=== PATIENT | female | born 1955 | race Caucasian/White ===

== ENCOUNTER 2019-10-17 08:00 | Outpatient (RCR) | payer MEDICARE, SELFPAY ==
--- NOTE | 2019-09-05 16:01 | OTOPEVAL ---
OCCUPATIONAL THERAPY EVALUATION 09/05/2019 Thank you for referring this patient to [facility]. The patient is going out of town, returning week of 09/23. Plan to see the patient 2x/week for 4 weeks beginning week of 09/23. Please review, sign, date and return this plan of care REINALDO. I agree with and certify that the following plan of care is medically necessary. Referring Physician Date Attending Provider: Javier Christopher MD *OT Outpatient Evaluation Start: 09/05/19 14:40 Freq: Status: Active Protocol: Document 09/05/19 14:40 ZAC (Rec: 09/05/19 16:01 ZAC [id number]) Therapy Assessment Status Assessment Status Assessment Status Evaluation Outpatient Past Medical History Neurological History Hx Neurological Disorders No Significant History Cardiovascular History Hx Cardiac Disorders No Significant History Respiratory History Hx Respiratory Disorders No Significant History Gastrointestinal History Hx Gastrointestinal Disorders No Significant History Genitourinary History Hx Genitourinary Disorders No Significant History Musculoskeletal History Hx Other Musculoskeletal Disorders Yes: LT DISTAL RADIUS FX Hematological History Hx Hematological Disorders No Significant History Endocrine History Hx Endocrine Disorders No Significant History HEENT History Hx HEENT Disorders No Significant History Integumentary History Hx Skin Disorders No Significant History Reproductive History Hx Other Reproductive Disorders Yes: LT BREAST CYST REMOVED- BENIGN. DECEMBER 2018 LOYD OOPHORECTOMY Psychosocial History Hx Psychiatric Disorders No Significant History Pain History Has Past Pain Affected Your Daily Life Yes: LT WRIST Anesthesia History Hx Post-Op Nausea/Vomiting Yes: Evaluation Information Problem Diagnosis (L) distal radius fracture Onset 07/30/19 Cause fall on outstretched hand Additional Evaluation Detail ORIF 08/05/19 wrist immobilizer discharged Subjective Information Patient reports she hasn't Query Text:As Reported By Patient/ been wearing a brace since Family Monday09/03/19. She hasn't been lifting more than a tissue box. Difficulties with opening door knobs, lifting water jug, doing her hair, and buttoning. Prior Level of Function Activity Level (Last 3 Months) Occupation Retired Hand Dominance Right Activity of Daily Living Ability Independent Pain Assessment Timing of Pain Assessment Timing of Pain Assessment Assessme
--- NOTE | 2019-10-17 08:47 | OTOPEVAL ---
OCCUPATIONAL THERAPY DISCHARGE 10/17/2019 Thank you for referring this patient to [facility] and including me in the care of this patient. Lacey has achieved functional ROM and strength of the left wrist. She is independent with all instructed materials at this time. Plan to D/C today. Please review, sign, date and return this D/C Summary REINALDO. I agree with and certify that the following plan of care is medically necessary. Referring Physician Date Attending Provider: Javier Christopher MD *OT Outpatient Re-Evaluation Evaluation Information Diagnosis (L) distal radius fracture s/p ORIF 08/05/19 Onset 07/30/19 Cause fall on outstretched hand Additional Evaluation Detail Lacey has been participating in outpatient OT since 09/05/2019 following DRF ORIF. OT has been focusing on ROM, strengthening, proprioception, functional coordination activities, and HEP education and progression. She has been extremely compliant with all materials. Subjective Information Patient reports no functional Query Text:As Reported By Patient/ limitations at this time. She Family reports continuing to feel end -range stiffness , however she understands that with time and continued use and strengthening this will subside. She is pleased with her progress and ready for discharge. Pain Assessment Timing of Pain Assessment Timing of Pain Assessment Re-assessment Pain Scale Pain Scale Used Numeric (1 - 10) Self Report Pain Assessment Left Wrist(s) Reported Pain Level 0 Pain Score Pain Score 0: Self Report Additional Pain Score Comments No pain at rest or with light use. Slight increase in discomfort with PROM and weight bearing. Upper Extremity Range of Motion Scapular/ Shoulder Range of Motion Left Reason Not Measured WNL/Left Elbow/Forearm Range of Motion Left Forearm Supination - Active 85 Forearm Pronation - Active 85 Elbow/Forearm Range of Motion Comments Supination improved from 45*. Pronation improved from 60*. Elbow flexion/extension are WNL. Wrist Range of Motion Left Wrist Flexion - Active 55 Wrist Flexion - Passive 55 Wrist Extension - Active 60 Wrist Extension - Pa
== END 2019-10-17 09:33 | disposition home or self-care (01) ==
LOC: ANHOT 08:00
PROVIDERS: PCP Orthopaedic Surgery; Visit Provider Orthopaedic Surgery
DX: Z47.89 Encounter for other orthopedic aftercare (principal)
CPT/HCPCS: 97018; 97110; 97140; 97165

== ENCOUNTER 2023-08-28 12:32 | Emergency (ER) | payer MEDICARE, SELFPAY ==
--- NOTE | ~2023-08-28 | XR_ITS ---
EXAMINATION: XR knee RT min 4V DATE: 08/28/2023 13:06 INDICATION: Right knee pain. Fall. TECHNIQUE: 4 views of right knee were obtained. COMPARISON: None. FINDINGS: There is a comminuted fracture of patella with incongruence of the articular surface. There is a sclerotic lesion in distal femur, which may be an enchondroma or osteonecrosis. The joint space s are normal. There is a small knee joint effusion. IMPRESSION: 1. Comminuted fracture of patella. 2. Small knee joint effusion. Reviewed, dictated and finalized at location A. ER MAKER
[2023-08-28 12:35] VITALS: BP 132/69; PULSE 56; RESP 20; TEMP 36.8; O2SAT 95
[2023-08-28 12:56] VITALS: BP 135/70; PULSE 56; RESP 17; O2SAT 99
--- NOTE | 2023-08-28 13:34 | ED.LOWEXIN ---
HPI - Extremity Injury (Lower) General Chief Complaint: Extremity Injury, Lower Stated Complaint: right knee pain Time Seen by Provider: 08/28/23 12:43 History of Present Illness HPI Narrative: Patient is a 68-year-old female with a history of osteoporosis presenting with right knee pain. Patient states that she was going on a walk when she tripped on either her shoe lace or the front of her hiking boot and fell straight onto her right knee. Had immediate severe pain in the right knee and had difficulty moving it. She did not strike her head or lose consciousness. No neck or back pain. No chest or abdominal pain. She took some ibuprofen with minimal relief. Related Data Allergies Allergy/AdvReac Type Severity Reaction Status Date / Time sulfite Allergy Unknown Rash Verified 08/30/23 09:47 Review of Systems Review of Systems: All systems reviewed & are unremarkable except as noted in HPI and below PMFSH Surgical History Surgical History (Updated 08/30/23 @ 11:09 by Sharon Avery MA) Fracture of left distal radius ORIF 07/2019 History of dental surgery History of partial hysterectomy Tubal ligation status Family History Family History (Updated 08/30/23 @ 11:09 by Sharon Avery MA) Other Osteoporosis Social History Social History (Updated 08/30/23 @ 11:08 by Sharon Avery MA) Social History: 1-2 glasses sake/day Smoking status: Never smoker Alcohol intake: current Alcohol use details: moderate Do You Feel Safe in your Home?: Yes Lack of Transportation: No Lack of Food: Never True Current Housing: I Have Housing Concerned About Future Housing: No Difficulty Paying Gas/Electric Bills: No Difficulty Paying for Meds: No Currently Unemployed: No Education: Master's Degree or Higher Difficulty w/ Childcare or Family Care: No Gender identity (if verbalized by the patient): Female Exam Narrative: GENERAL: Well-appearing, uncomfortable appearing, pleasant and cooperative HEAD: Normocephalic, atraumatic. EYES: PERRLA and EOMI. ENT: grossly unremarkable NECK: Supple. CHEST: No respiratory distress. HEART: Regular rate and rhythm. . Normal peripheral pulses. EXTREMITIES: right knee is swollen with an anterior abrasion, diffusely tender, patient unable to extend or flex, distal pulses 2+, sensation is intact SKIN: Warm, dry NEURO: No focal deficits. Alert and oriented x3. PSYCH: Normal mood and affect. Course Vital Signs Vital signs: Vital Signs Temperature 98.3 F 08/28/23 12:35 Pulse Rate 56 L 08/28/23 12:35 Respiratory Rate 20 08/28/23 12:35 Blood Pressure 132/69 08/28/23 12:35 Pulse Oximetry 95 08/28/23 12:35 Oxygen Delivery Room Air 08/28/23 12:35 Temperature 98.3 F 08/28/23 12:35 Pulse Rate 66 08/28/23 15:47 Respiratory Rate 18 08/28/23 15:47 Blood Pressure 97/55 L 08/28/23 15:47 Pulse Oximetry 95 08/28/23 15:47 Oxygen Delivery Room Air 08/28/23 12:35 MDM - Extremity Injury (Lower) MDM Narrative Medical decision making narrative: patient is a 68-year-old female presenting with right knee pain after a fall at vitals are stable. Exam remarkable for the above x-ray shows a comminuted right patellar fracture. She is neurovascularly intact. Patient was placed in a knee immobilizer. She received IV Dilaudid and Zofran with improvement in her pain. States that is now tolerable. Spoke with Dr. Parrish who agrees with knee immobilizer and he will see her in clinic this week. Will send in for Dixon for pain control. Advised that she also supplement with ibuprofen. Discussed appropriate supportive care. Patient is agreeable with this plan. Discharged in stable condition. Differential Diagnosis Differential diagnosis: Likely acute internal derangement of knee and other ( Patellar fracture, fall) Medical Records Attestation: I reviewed the patient's medical records. Lab Data Attestation: I reviewed
[2023-08-28] MEDS: SODIUM CHLORIDE 0.9% IV 1,000 ML 999 ML IV CONT (13:47)
[2023-08-28] MEDS: ONDANSETRON INJ 4 MG/2 ML VIAL IV PUSH (13:49)
[2023-08-28] MEDS: HYDROmorphone HCL INJ (*CRX) 1 MG/ML SYR 0.5 MG IV PUSH (13:50)
[2023-08-28 13:51] VITALS: BP 119/70; PULSE 74; RESP 16; O2SAT 100
[2023-08-28 13:51] LABS: Basophils Absolute Auto 0.1 K/mm3 (0.0-0.1); Basophils Percent Auto 0.4 % (0.2-1.2); Eosinophils Percent Auto 0.3 % (0-4.4); Hematocrit 42.1 % (37.0-47.0); Hemoglobin 13.4 g/dL (12.0-15.0); Immature Granulocyte Absolute 0.04 K/mm3 (0.00-0.031); Immature Granulocyte Percent A 0.3 % (0-0.5); Lymphocytes Percent Auto 8.3 % (18.3-44.2); Mean Corpuscular HGB Conc 31.8 g/dl (32-36); Mean Corpuscular Hemoglobin 29.7 pg (26-34); Mean Corpuscular Volume 93.3 fl (80-100); Mean Platelet Volume 9.6 fl (7.4-10.4); Monocytes Absolute Auto 0.6 K/mm3 (0.1-0.6); Monocytes Percent Auto 4.6 % (2.6-8.5); Neutrophils Absolute Auto 10.4 K/mm3 (1.3-6.7); Neutrophils Percent Auto 86.1 % (45.5-73.1); Platelet Count Result 261 k/mm3 (150-375); Red Blood Count 4.51 M/mm3 (4.2-5.4); Red Cell Distribution Width 12.7 % (11.5-14.5)
[2023-08-28 14:01] LABS: Anion Gap 9 mmol/L (8-16); Blood Urea Nitrogen 15 mg/dL (7-17); Calcium 9.1 mg/dL (8.4-10.2); Carbon Dioxide 27 mmol/L (22-30); Chloride 101 mmol/L (98-107); Estimated CRCL calculation 56 ml/min; Estimated Glomerular Filt Rate > 60; Glucose 124 mg/dL (65-110); Potassium 3.8 mmol/L (3.4-5.0); Prothrombin Time 13.5 Seconds (11.1-14.7); Sodium 137 mmol/L (137-145)
[2023-08-28 14:02] LABS: Partial Thromboplastin Time 24.8 SECONDS (22.3-36.8)
[2023-08-28 14:39] VITALS: BP 104/61; PULSE 58; RESP 17; O2SAT 98
[2023-08-28 15:47] VITALS: BP 97/55; PULSE 66; RESP 18; O2SAT 95
== END 2023-08-28 15:49 | disposition home or self-care (01) ==
PROVIDERS: Emergency Provider Emergency Medicine
DX: S82.041A Displaced comminuted fracture of right patella, initial encounter for closed fracture (principal); Z90.710 Acquired absence of both cervix and uterus; W01.0XXA Fall on same level from slipping, tripping and stumbling without subsequent striking against object, initial encounter
CPT/HCPCS: 36415; 73564; 80048; 85025; 85610; 85730; 96361; 96374; 96375; 99284; J1170; J2405; J7030

== ENCOUNTER 2023-09-04 13:05 | Outpatient (CLI) | payer MEDICARE, SELFPAY ==
--- NOTE | ~2023-09-04 | CT_ITS ---
EXAMINATION: CT knee RT wo con DATE: 09/04/2023 13:31 INDICATION: Displaced comminuted fracture of the right patella TECHNIQUE: High resolution computed tomography (CT) of the right knee was performed without intraveno us contrast. Additional sagittal and coronal reconstructions were performed. Automated exposure contr ol and iterative reconstruction technique were employed. The dose-length product was 614.52 mGy-cm. COMPARISON: None FINDINGS: Comminuted intra-articular fracture of the right patella. There is mild displacement along a horizont ally oriented fracture plane extending between the cephalad and mid thirds of the patella. There is 3 mm step-off along the articular surface and mild distraction along the anterior margin of the fractu re resulting in up to 4 mm wide fracture gap. There is an additional nondisplaced horizontally orient ed fracture across the caudal third of the patella as well as a minimally displaced sagittally orient ed fracture plane extending between the 2 fracture lines medial side of the patella with up to 1.5 mm step-off along the articular surface at the medial patellar facet. Normal alignment between the femur, tibia and fibula with no other fractures identified. Joint spaces appear relatively preserved on nonweightbearing imaging. 2.0 x 1.6 x 1.3 cm sclerotic lesion with ri ng and arc-like pattern of calcification consistent with chondroid matrix in the setting of an enchon droma. Small hemarthrosis at the suprapatellar pouch. Mild subcutaneous edema about the knee. Soft ti ssues are otherwise unremarkable. IMPRESSION: 1. Mildly displaced comminuted intra-articular fracture of the right patella with associated small he marthrosis. Reviewed, dictated and finalized at location A. RIOR MECHANIC IMPRESSION: 1. Mildly displaced comminuted intra-articular fracture of the right patella wi th associated small hemarthrosis.
== END 2023-09-04 13:06 | disposition home or self-care (01) ==
PROVIDERS: Visit Provider Orthopaedic Surgery
DX: S82.041A Displaced comminuted fracture of right patella, initial encounter for closed fracture (principal); X58.XXXA Exposure to other specified factors, initial encounter
CPT/HCPCS: 73700

== ENCOUNTER 2023-09-12 01:09 | Day surgery (SDC) | payer MEDICARE, SELFPAY ==
[2023-09-08 11:38] VITALS: BMI 24.2
--- NOTE | 2023-09-08 11:52 | PC.NURSE ---
Report to the Outpatient Waiting Room, entrance under the green pavilion located off [facility], at time ___1 PM____ on date ___09/12/23____. Planned Procedure Time: ___3 PM . Time changes happen often and if your time is changed the preop area will call you the afternoon before. - You and your visitor will be asked to self-screen and do not enter if you have any COVID symptoms. - A mask is optional within the hospital at this time. Patients may have clear liquids (water, carbonated beverages, clear teas, apple juice) until 3 hours prior to surgery (1200 NOON) with a maximum of 20 ounces. - No food from midnight until time of surgery - Infants may have breast milk until 4 hours before surgery, infant formula 6 hours prior to surgery. - Children will be allowed to drink immediately following surgery. If applicable, please bring a bottle or sippy cup to assist with drinking. Juice, water, soda, and popsicles are readily available. For infants on formula, please bring formula the day of surgery. Pacifiers are allowed. Take the following medications with a SIP of water the morning of surgery: PAIN MED IF NEEDED DO NOT STOP ANY OF YOUR OTHER PRESCRIPTION MEDICATIONS PRIOR TO SURGERY ?EXCEPT THE FOLLOWING Medications to discontinue per physician Date to take last dose Please no make-up, nail bulgarian, hairspray, perfume, deodorant, or body powder the day of surgery. No jewelry (including any body piercings) or valuables the day of surgery, leave them at home. Please take a shower or bath the night before, or the morning of, surgery with an antibacterial soap. Wear comfortable, loose fitting clothing. Children are encouraged to wear pajamas. - Jewelry must be removed prior to entering the operating room. Rings and piercings that are not removed may be cut off. - The hospital will not accept responsibility for valuables. - Please leave all valuables, including medications, at home the day of surgery. If you are going home after surgery, a licensed security patrol driver must drive you home. - NO public transportation without another adult if you receive anesthesia. - We recommend that an adult stay with you for 24 hours following discharge. - We also recommend that you do not drive, make important decision, drink alcoholic beverages, or take any drugs that were not prescribed by your health care provider for at least 24 hours after your discharge time. For Pediatric surgeries, we recommend two adults accompany the child home. Follow any additional instructions given to you from your surgeon. If you or anyone in your household have experienced Covid symptoms in the past week, please notify your surgeon or the nurse liaison at the phone number below for possible testing. Telephone instructions given to PT and asked if any additional questions and then verbalized understanding. Patient advised to call surgeon office or pre surgery nurse liaison [phone] if any additional questions.
[2023-09-12] VITALS (8 sets, daily range): BP systolic 111–125; BP diastolic 57–75; PULSE 71–82; RESP 9–24; TEMP 36.2–37.4; O2SAT 97–100
--- NOTE | ~2023-09-12 | XR_ITS ---
EXAMINATION: XR surgery orthopedic DATE: 09/12/2023 15:45 INDICATION: ORIF right patella fracture TECHNIQUE: 3 fluoroscopic images of the right knee were obtained during procedure performed by Dr. Briana ahmadi. Radiologist was not present for the imaging or procedure. The amount of fluoroscopy time us ed during this procedure was 0.9 minutes. COMPARISON: CT dated 09/04/2023 FINDINGS: Level of reduction and internal fixation of the previous noted comminuted fractures of the patella. T he fracture is fixed with a pair of distal to proximal directed cannulated lag screws which extend . Cerclage wire. Alignment appears near-anatomic with reduction in a now minimal amount of incongruity along the articular cortex. Expected postoperative intra-articular gas. No new fractures identified. Sclerotic lesion with ring and arc-like configuration in the distal femoral metaphysis most consisten t with an enchondroma. IMPRESSION: 1. Near-anatomic alignment post open reduction internal fixation of a comminuted intra-articular frac ture of the right patella. Reviewed, dictated and finalized at location A. CONTROL CLERK IMPRESSION: 1. Near-anatomic alignment post open reduction internal fixation of a comminute d intra-articular fracture of the right patella.
[2023-09-12] MEDS: ACETAMINOPHEN 500 MG TABLET 1000 MG PO (13:30)
[2023-09-12] MEDS: LACTATED RINGERS 1,000 ML 30 ML IV CONT ×2 (14:00→16:06)
--- NOTE | 2023-09-12 14:00 | WPDANESEPPF ---
Anes - Initial Pre Proc Eval Procedure: Operation Date: 09/12/23 15:00 Proposed Procedures p Open Reduction Internal Fixation Right Patella - Isaak Parrish MD Date/Time: 09/12/23 14:00 Surgeon: Isaak Parrish MD Pre Op Diagnosis: right patella fx Patient Data Age: 68 Gender: F Height: 1.56 m Weight: 56.35 kg Last Vital Signs Temp 37.4 C 09/12/23 13:51 Pulse 71 09/12/23 13:51 Resp 16 09/12/23 13:51 BP 115/60 09/12/23 13:51 Pulse Ox 98 09/12/23 13:51 O2 Del Method Room Air 09/12/23 13:51 Allergies Allergy/AdvReac Type Severity Reaction Status Date / Time sulfite Allergy Unknown Rash Verified 09/12/23 13:17 Home Medications Medication Instructions Recorded Confirmed Type hydrocodone 5 mg-acetaminophen 325 1 - 2 tablet PO Q4-6H PRN pain #40 08/30/23 09/08/23 Rx mg tablet tabs Patient hx anesthesia problems: none Family hx anesthesia problems: none Results Review: All pre-operative results and documents have been reviewed as part of the pre-operative evaluation. [facility] Surgical History Surgical History Fracture of left distal radius ORIF 07/2019 History of dental surgery History of partial hysterectomy Tubal ligation status Family History Family History Other Osteoporosis Social History Social History Social History: 1-2 glasses sake/day Smoking status: Never smoker Tobacco type: cigarettes Second hand tobacco smoke exposure: No Alcohol intake: current Drinks per week: 1 Alcohol use details: WINE Substance use: never Substance use type: does not use Do You Feel Safe in your Home?: Yes Lack of Transportation: No Lack of Food: Never True Current Housing: I Have Housing Concerned About Future Housing: No Difficulty Paying Gas/Electric Bills: No Difficulty Paying for Meds: No Currently Unemployed: No Education: Master's Degree or Higher Difficulty w/ Childcare or Family Care: No Living arrangements: alone Gender identity (if verbalized by the patient): Female Spiritual care concerns: No Anes - Eval Final PreProcedure Day of Procedure 09/12/23 14:00 Patient weight: normal Heart: regular rate and rhythm Lungs: clear to auscultation Airway: Mallampati scale class II Neurological: alert and oriented Last oral intake: >/= 8 hours ASA classification: II Emergent: no Anesthetic plan: proceed Anesthesia type and monitoring: general LMA and standard monitoring Results Review: All pre-operative results and documents have been reviewed as part of the pre-operative evaluation. Informed Consent: The patient's anesthetic plan and its attendant risks and benefits were discussed with the patient/family/POA. Questions were solicited and answers provided to the satisfaction of the patient/family/POA.
[2023-09-12] MEDS: KETOROLAC 15 MG/ML VIAL (*BKC) IV PUSH (14:04)
--- NOTE | 2023-09-12 14:15 | WPDHPUPDATE1 ---
History and Physical Update Update Date/Time: 09/12/23 14:15 History and Physical has been reviewed, including an updated exam of the patient. There are NO changes in the patient's condition. Risks, benefits, and alternatives have been discussed and questions answered. Patient agrees to proceed with procedure.
[2023-09-12] MEDS: ceFAZolin 2 GM/D5W 50 ML 2 GM/50 ML BAG IVPB (14:21)
--- NOTE | 2023-09-12 15:56 | P.OP_ITS ---
Procedure Note - Detailed Date of Procedure 09/12/23 Pre-op Diagnosis Right displaced patella fracture. Post-op Diagnosis Same Procedure Performed ORIF displaced patella fracture, right knee. Surgeon Isaak Parrish MD Anesthesia General Description of Procedure Preoperative antibiotics were given. A general anesthetic was administered. The limb was prepped and draped in the usual sterile fashion. The limb was exsanguinated and tourniquet inflated to 3 mmHg. A longitudinal incision was created over the patella. The fracture was identified and cleared of debris. A trivector approach was performed to allow for partial eversion of the patella. The fracture was impacted and step-off was noted consistent with the findings on CT scan. Fracture was pried open with the [place] elevator. The fracture was aligned under direct vision and fluoroscopy was used to assist maintenance of fracture reduction and appropriate placement of all implants. Three temporary K-wires were placed. The 2 K-wires for the cannulated screws were placed from distal to proximal. These were over drilled after measurement. The screws were placed with good purchase. The 22 gauge wire was woven in a figure-eight fashion and tightened. This applied a nice compression at the fracture site. The wound was irrigated. The tourniquet was released. Meticulous hemostasis maintained. The defects were closed and reinforced with interrupted 1. Vicryl suture. The arthrotomy was closed with running #1 Stratafix suture. The subcutaneous tissues were closed with interrupted 1. Vicryl followed by #1 Stratafix suture and 3-0 and 4-0 Stratafix suture. Steri-Strips were placed on the skin. A sterile dressing with waterproof bandage applied. Light compressive wrap. Knee immobilizer placed. Patient extubated and brought to the recovery room in stable condition. Implants Synthes 4.0 mm partially-threaded cannulated screws x2. 22 gauge surgical wire. Estimated Blood Loss 20 Drains No Pathology None sent Complications No immediate complications Condition Stable Disposition PACU [facility] Billing Surgery - Charge Forward: Surgery Billing
[2023-09-12] MEDS: fentaNYL CITRATE INJ (*CRX) 100 MCG/2 ML VIAL 25 MCG IV PUSH ×8 (16:07→16:40)
[2023-09-12] MEDS: oxyCODONE HCL (*CRX) 5 MG TAB IR PO (17:19)
== END 2023-09-12 18:15 | disposition home or self-care (01) ==
PROVIDERS: Visit Provider Orthopaedic Surgery
PROC: (CPT 27524; principal; 2023-09-12 15:00)
DX: S82.041A Displaced comminuted fracture of right patella, initial encounter for closed fracture (principal); W01.0XXA Fall on same level from slipping, tripping and stumbling without subsequent striking against object, initial encounter
CPT/HCPCS: 27524; 99199; A9270; C1713; C1769; J0690; J1100; J1170; J1885; J2250; J2405; J2704; J3010; J7120; L1830

== ENCOUNTER 2023-11-09 08:00 | Outpatient (RCR) | payer MEDICARE, SELFPAY ==
--- NOTE | 2023-10-18 14:36 | OPREHPOC ---
Outpatient Therapy Plan of Care This is a Multidisciplinary Plan of Care that may contain components documented by all disciplines (PT, OT, and ST.) PT Problem 1 PT Problem #1 Knowledge Deficit PT Goal 1 Goal 1* indep with HEP PT Problem 2 PT Problem #2 Pain PT Goal 1 Goal 1* decrease pain in knee to 3/10 at worst PT Problem 3 PT Problem #3 Impaired Flexibility PT Goal 1 Goal increase knee extension R, to improve gait and stance phase 1* sitting knee extension active 0' PT Problem 4 PT Problem #4 Edema PT Goal 1 Goal decrease edema over R knee to decrease pain and increase extension motion circumferential measurements of R knee: 1* superior to patella 39 cm 2* mid patella 38 cm 3* inferior to patella 31 cm PT Problem 5 PT Problem #5 Impaired Strength PT Goal 1 Goal improve strength of R knee to improve ability on stairs: 1* single leg standing 10 seconds with good stability
--- NOTE | 2023-10-18 14:36 | PTOPEVAL1 ---
Assessment and note entered by Arlen Lainez PT Evaluation Information Assessment Status Evaluation Diagnosis s/p ORIF R patella Onset 09-12-23 Subjective Information fell on 08-28-23, with surgery on 09-12-23; use knee brace for distance walking- over the counter for little support; have not used walker for the past 2 weeks; does not have any restrictions from , per progress note, wean off knee brace ; exercises from dr--knee ROM in sitting- extension and flexion; has not gone down to her basement- 1 rail descend R side; have 2 entry steps from garage with grab bar and do OK; Activity: live alone, able to do all home and self care tasks; have returned to driving, shopping; Retired; Reported Pain Level Pain Score Self Report Additional Pain Score Comments pain range in the past few days 3-5/10 increase pain: in AM when awaken from sleep decrease pain: move knee- bend and straighten still have some swelling; is not taking any pain meds. not using heat/ice - instruct on PRN use of ice for edema Assessment PT Clinical Summary Gilma is s/p fall with R patella ORIF. She does not have any restrictions. Prior to surgery, she was active and indep with activity--no limitations . Reports she is afraid of falling, has not gone down into her basement- fearful of knee giving out With the evaluation: she is walking without an assistive device with good gait pattern; 5 reps sit/stand time and 2 minute walking test distance are WNL; R knee active ROM in sitting (-10') to 125' and supine extension knee (-5'). There is edema over knee. Slight decrease in hip extension and knee extension strength, with decreased eccentric control of quad with stairs. Skilled PT services are indicated for modalities to decrease pain and darius
--- NOTE | 2023-11-09 12:50 | PTOPDC ---
Assessment and note entered by Arlen Lainez, PT Discharge Information Assessment Status Discharge Diagnosis s/p ORIF R patella Onset 09-12-23 Subjective Information is doing well, is able to do everything; stairs do not give her any troubles anymore; is doing her exercises at home; wants to be finished with therapy. Reported Pain Level Pain Score Self Report Additional Pain Score Comments pain range in the past week of 0-1/10; little ache and sore in knee, but can do everything without problems Assessment PT Clinical Summary Gilma has received 8 PT sessions. She has improved in all areas since eval: pain decreased to 0-1/10; decreased edema with 3 of the 3 circumferential measurements; ROM of knee active in sitting is 0-135'; increase strength of R LE, normal gait pattern and education completed for HEP. The goals were achieved. Discharge PT services. She is to continue with her home exercises. Plan of Care PT Services Indicated No
== END 2023-11-09 14:34 | disposition home or self-care (01) ==
LOC: ANHPT 08:00
PROVIDERS: Visit Provider Orthopaedic Surgery
DX: Z47.89 Encounter for other orthopedic aftercare (principal)
CPT/HCPCS: 97016; 97110; 97112; 97161; 97530